=== PATIENT | female | born 1990 | race Caucasian/White ===

== ENCOUNTER 2017-01-31 21:49 | Emergency (ER) | payer OTHER ==
[~2017-01-31] VITALS: Ht 165.1 cm; Wt 61.4 kg
[2017-01-31 21:54] VITALS: BP 119/66; PULSE 90; RESP 16; O2SAT 100
--- NOTE | 2017-01-31 22:37 | ED.REPORT ---
HPI-General Illness Date of Service Jan 31, 2017 ED Provider: Geo Montenegro DO Pt is a 26 year old female with a history of vestibular neuritis who presents to the ED complaining of dizziness onset today. She c/o associated weakness, headache, nausea, left ear pain, intermittent tinnitus, photophobia, and spinning sensation. She denies vomiting, hearing loss, and any other symptoms. Her symptoms are constant and gradual in onset. Pt reports that she believes that her symptoms are an exacerbation of vertigo. She states that is feels like she is on a boat. She has experienced similar symptoms when she has had vestibular neuritis, which tends to occur after flights. The pt admits to a recent flight to and from [facility]. She snorkeled, but denies swimming deep into the water. Her left ear pain has resolved and she reports that she was applying otc ear drops. Nursing Notes Stated Complaint: VERTIGO Chief Complaint: General Complaint Nursing Notes Reviewed: Yes Allergies: Coded Allergies: No Known Allergies (Verified , 01/31/17) General Time Seen by MD: 22:36 Chief Complaint Dizziness Hx Obtained From: Patient Arrived By: Walk-in Sudden in Onset?: No Onset Occurred: 5 - 8 hours ago Symptom Duration: Constant Location: : Ear left Quality: Painful Radiation: : Does not radiate Severity: Current: No pain currently Severity: Maximum: Moderate Recent Healthcare: No recent doctor visit, No recent hospitalization Similar Sx Previous: Yes Past Medical History Past Medical History Vestibular neuritis x6 Past Surgical History None reported Smoking History Unknown if Ever Smoker Social History Other Social History: Good social support Ambulatory Status Independent Review of Systems Full Review of Systems Constitutional: Reports: Weakness - generalized Eyes: Reports: Photophobia Ears / Nose / Throat: Reports: Ear ringing bilateral, Earache left, Denies: Hearing loss bilateral, Hearing loss left, Hearing loss right GI: Reports: Nausea, Denies: Vomiting Neurologic: Reports: Dizziness, Headache, Spinning sensation Physical Exam Vital Signs Vital Signs Date Time Temp Pulse Resp B/P Pulse Ox O2 Delivery O2 Flow Rate FiO2 02/01/17 02:14 37.0 75 18 100/58 95 Room Air 01/31/17 21:54 36.7 90 16 119/66 100 Room Air Initial VS: Reviewed Head / Eyes: Atraumatic, Normocephalic Neck: Supple, Full range of motion Respiratory: Breath sounds normal, Clear to auscultation, No respiratory distress Cardiovascular: Regular rate & rhythm, Heart sounds normal, Intact distal pulses Abdomen / GI: Soft, Non-tender Extremities: Vascular intact, Neuro intact Skin: Warm, Dry, No cyanosis Neurologic: Alert, Oriented, Nonfocal Psychiatric: Mood/affect normal, Behavior normal General/Constitutional: Awake, Alert ENT: Airway patent Retracted left ear drum with yellow fluid behind it with anterior erythema, which looks like an an acute otitis media. The eardrum also looks like there is a scar probably from a prior perforation. Mastoids are nontender. Interpretation & Diagnostics Lab Results Interpretation Result Diagram: 01/31/17 2354 01/31/17 2354 Test 01/31/17 23:53 01/31/17 23:54 Urine Color Yellow (YELLOW) Urine Appearance Clear (CLEAR,HAZY) Urine pH 7.0 (5.0-8.0) Urine Specific [place] 1.005 (1.003-1.035) Urine Protein Negativemg/dL (NEG,TRACE) Urine Glucose (UA) Negativemg/dL (NEGATIVE) Urine Ketones Negativemg/dL (NEGATIVE) Urine Occult Blood Negative (NEGATIVE) Urine Nitrite Negative (NEGATIVE) Urine Bilirubin Negative (NEGATIVE) Urine Urobilinogen Normalmg/dL (NORMAL) Urine Leukocyte Esterase Negative (NEGATIVE) Urine RBC 0-2/hpf (0-2) Urine WBC 0-5/hpf (0-5) Urine Epithelial Cells Few/hpf (NONE-MOD) Urine Crystals Amorphous phosphates Urine Bacteria Few/hpf (NONE-FEW) Urine Hyaline Casts None/lpf (NONE) Urine Granular Casts None seen (NONE SEEN) Urine Waxy Casts None seen (NONE SEEN) Urine Red Blood Cell Casts None seen (NONE SEEN) Urine White Blood Cell Casts None seen (NONE SEEN) Urine Mucus None seen (None Seen) Urine Trichomonas None seen (NONE SEEN) Urine Yeast None (NONE SEEN) Urine Culture Reflexed Not indicated White Blood Count 6.7th/mm3 (3.8-10.1) Red Blood Count 4.57mil/mm3 (3.90-5.20) Hemoglobin 14.0g/dL (12.0-15.6) Hematocrit 40.9% (35.0-46.0) Mean Corpuscular Volume 89.5fL (81-100) Mean Corpuscular Hemoglobin 30.6pg (27.0-35.0) Mean Corpuscular Hemoglobin Concent 34.2% (32.0-37.0) Red Cell Distribution Width 11.5% (12.3-15.4) Platelet Count 274bil/L (150-400) Neutrophils (%) (Auto) 47.3% (40-74) Lymphocytes (%) (Auto) 39.9% (14-46) Monocytes (%) (Auto) 7.2% (4-12) Eosinophils (%) (Auto) 4.7% (0-5) Basophils (%) (Auto) 0.6% (0-3) Sodium Level 138mEq/L (134-144) Potassium Level 4.1mEq/L (3.5-5.2) Chloride Level 100mEq/L (97-108) Carbon Dioxide Level 20mmol/L (18-29) Blood Urea Nitrogen 11mg/dL (6-20) Creatinine 0.86mg/dL (0.57-1.00) Estimat Glomerular Filtration Rate 116mL/min (>59) Glucose Level 100mg/dL (60-99) Calcium Level 9.5mg/dL (8.5-10.1) Total Bilirubin 0.2mg/dL (0.0-1.2) Aspartate Amino Transf (AST/SGOT) 17U/L (0-50) Alanine Aminotransferase (ALT/SGPT) 13U/L (0-32) Alkaline Phosphatase 50U/L (25-150) Total Protein 7.5g/dL (6.4-8.4) Albumin 4.2g/dL (3.4-5.0) Human Chorionic Gonadotropin, Qual 0.500 (Negative) Re-Eval/Medical Decision Med Decision/Clinical Course Healthy 26-year-old female with vertiginous symptoms. Symptoms are severe when she turns her head. She has had at least 5 bouts of vertigo in the past. She does have what appears to be a purulent left otitis media. No evidence of mastoiditis. Laboratory work is reassuring. She is not . She is hydrated and symptomatically treated. This helped the symptoms and they were nearly completely abated at discharge. I will refer her to ear nose and throat for definitive follow-up. Ten-day course of Augmentin as well as Antivert for the vertigo symptoms. Acute coronary syndrome, pulmonary emboli and sepsis highly unlikely based on history and physical examination. Stroke seems highly unlikely. This is clearly a peripheral vertigo that is worsened with head turning and with motion of her eyes. Normal cerebellar examination. Thorough cranial nerve examination was otherwise normal without any other deficits. Source of Hx: Old records Time of Eval: 23:12 Re-Evaluation/Progress Note: Informed pt of plan for treatment. Pt understands and agrees with plan for treatment. All questions addressed. Time of Eval: 00:48 Re-Evaluation/Progress Note: Pt rechecked. Pt is feeling better and would like to go home. Informed pt of plan for discharge. Pt understands and agrees with plan for discharge. F/U instructions and RTER warnings given. All questions addressed. Counseled Regarding: Diagnosis, Lab results, Need for follow-up, When/why to return to ED Discharge & Departure Primary Impression: Vertigo Additional Impression: Otitis media Otitis media type: suppurative Laterality: left Chronicity: acute Recurrence: recurrent Spontaneous tympanic membrane rupture: without spontaneous rupture Qualified Code: H66.005 - Acute suppurative otitis media without spontaneous rupture of ear drum, recurrent, left ear Disposition: Home Discharge Condition All VS Reviewed: Yes Condition: Stable Patient Instructions: Ear Infection (ED), Vertigo (ED) Additional Instructions: You have an infected left eardrum and it looks like you may have ruptured your left eardrum at some point in time as it is scarred. I suspect this is triggering the vertigo. Take Augmentin twice daily for 10 days. Take Zofran 1 every 8 hours as needed for nausea. Take Antivert 1 every 6-8 hours needed for the spinning sensation. Drink plenty of liquids. I would like to set up a follow-up with a referral ear, nose, and throat clinic. Do not drive tonight as you have received sedating medications. Return if you have any problems or any new or worrisome symptoms. Return if you have any discharge from your left ear whatsoever. Referrals: Joselito Juan MD [facility] Scribe Attestation Portions of this note were transcribed by Tameka Angel. I, Dr. Montenegro personally performed the history, physical exam and medical decision-making; I reviewed and confirmed the accuracy of the information in the transcribed note. Signed by : Yaakov Romero, 01/31/17. copies to: Joselito Juan MD; [facility] Geo Montenegro DO Jan 31, 2017 22:36 Tameka Murray Jan 31, 2017 23:18
[2017-01-31] MEDS ORDERED: Promethazine Inj 12.5 MG in Dextrose 5%-Pha MIX 50 ML IV ONE (23:20)
[2017-01-31 23:57] LABS: BASOPHILS % (AUTO) 0.6 % (0-3); EOSINOPHILS % (AUTO) 4.7 % (0-5); MONOCYTES % (AUTO) 7.2 % (4-12); Mean Corpuscular Hemoglobin 30.6 pg (27.0-35.0); Mean Corpuscular Volume 89.5 fL (81-100); NEUTROPHILS % (AUTO) 47.3 % (40-74); Platelet Count 274 bil/L (150-400)
[2017-02-01] LABS: APPEARANCE,URINE CLEAR (CLEAR,HAZY); COLOR,URINE YELLOW (YELLOW); OCCULT BLOOD,URINE NEGATIVE (NEGATIVE); UROBILINOGEN,URINE NORMAL (NORMAL)
[2017-02-01] MEDS: 0.9% Sodium Chloride 1,000 ML IV SCH ×2 (00:17→01:05)
[2017-02-01] MEDS ORDERED: Sodium Chloride LOK Flush 10 mL Syringe IVFLUSH SCH (00:30)
[2017-02-01] MEDS ORDERED: _Ondansetron ODT 4 mg Tablet PO PRN (00:55)
[2017-02-01] MEDS ORDERED: Amoxicillin-Clav 875-125 mg Tablet PO ONE (00:55)
[2017-02-01 02:14] VITALS: BP 100/58; PULSE 75; RESP 18; O2SAT 95
== END 2017-02-01 02:10 | disposition home or self-care (01) ==
LOC: SED 21:49
DX: R42 Dizziness and giddiness (principal); H66.005 Acute suppurative otitis media without spontaneous rupture of ear drum, recurrent, left ear; R53.1 Weakness; R51 Headache; R11.0 Nausea; H93.12 Tinnitus, left ear; H53.149 Visual discomfort, unspecified; Z86.69 Personal history of other diseases of the nervous system and sense organs
CPT/HCPCS: 36415; 80053; 81000; 84703; 85025; 96361; 96374; 96375; 99285; J1200; J2550; J7030